=== PATIENT | male | born 1950 | race Caucasian/White ===

== ENCOUNTER 2016-09-25 16:17 | Emergency (ER) | payer MEDICAID ==
[~2016-09-25] VITALS: Ht 167.6 cm; Wt 70.0 kg
[~2016-09-25 16:17] MED LIST: DIPH50 PO; FLUP10 PO
[2016-09-25] MEDS ORDERED: HALO2 PO (16:36)
[2016-09-25] MEDS ORDERED: BENZ0.5T6 PO (16:36)
[2016-09-25] MEDS ORDERED: SODIUM CHLORIDE 0.9% 1,000 ML IV ONE (17:00)
[2016-09-25 17:14] LABS: BASOPHILS % (AUTO) 0.2 % (0.0-2.0); EOSINOPHILS % (AUTO) 4.7 % (1.0-6.0); HEMATOCRIT 39.9 % (41-53); HEMOGLOBIN 13.1 g/dL (13.5-17.5); LYMPHOCYTES # (AUTO) 0.9 K/uL (1.0-4.8); LYMPHOCYTES % (AUTO) 12.6 % (22.0-44.0); MEAN CORPUSCULAR HEMOGLOBIN 29.9 pg (26.0-34.0); MEAN CORPUSCULAR HGB CONC 32.8 G/dL (31.0-37.0); MEAN CORPUSCULAR VOLUME 91 fL (80-100); MONOCYTES # (AUTO) 0.5 K/uL (0.1-1.0); MONOCYTES % (AUTO) 7.5 % (2.0-9.0); NEUTROPHILS # (AUTO) 5.1 K/uL (1.8-7.7); RED BLOOD CELL COUNT(AUTO) 4.38 MIL/uL (4.50-5.90); RED CELL DISTRIBUTION WIDTH 13.4 % (11.5-14.5); WHITE BLOOD COUNT (AUTO) 6.8 K/uL (4.5-11.0)
[2016-09-25 17:27] LABS: ANION GAP 4 mmol/L (8-16); CALCIUM, TOTAL 8.8 mg/dL (8.8-10.5); CARBON DIOXIDE 34 mmol/L (22-29); CHLORIDE 102 mmol/L (98-107); CREATININE 1.39 mg/dL (0.60-1.30); GLOMERULAR FILTR. RATE CALC 51 mL/min (>60); POTASSIUM 3.6 mmol/L (3.5-5.1); SODIUM SERUM 140 mmol/L (136-145); UREA NITROGEN, BLOOD 26 mg/dL (7-18)
[2016-09-25 17:31] LABS: PLATELET COUNT (AUTO) 190 K/uL (150-450)
[2016-09-25 17:42] LABS: B-TYPE NATRIURETIC PEPTIDE 180 pg/mL (0-100)
[2016-09-25 17:50] LABS: ALANINE AMINOTRANSFERASE 26 U/L (12-78); ALBUMIN 3.9 g/dL (3.4-5.0); ASPARTATE AMINOTRANSFERASE 22 U/L (15-37); BILIRUBIN,TOTAL 1.2 mg/dL (0.1-1.0); CREATINE KINASE MB 1.4 ng/mL (0-5); CREATINE KINASE, TOTAL 77 U/L (39-308); TOTAL PROTEIN, SERUM 7.2 g/dL (6.4-8.2)
[2016-09-25 17:59] LABS: APPEARANCE,URINE CLEAR (CLEAR); GLUCOSE, URINE (UA) NEGATIVE (NEGATIVE); KETONES,URINE NEGATIVE (NEGATIVE); LEUKOCYTE ESTERASE ,URINE NEGATIVE (NEGATIVE); OCCULT BLOOD,URINE NEGATIVE (NEGATIVE); PROTEIN,URINE NEGATIVE (NEGATIVE)
[2016-09-25 18:01] LABS: ADD UA MICROSCOPIC NO
[2016-09-25 21:07] VITALS: BP 129/83
== END 2016-09-25 21:30 | disposition home or self-care (01) ==
LOC: EMS 16:18
DX: E86.0 Dehydration (principal); R11.2 Nausea with vomiting, unspecified; E11.9 Type 2 diabetes mellitus without complications; F17.210 Nicotine dependence, cigarettes, uncomplicated
CPT/HCPCS: 36415; 80053; 80307; 81003; 82550; 82553; 83690; 83880; 84484; 85025; 93005; 96360; 96361; 99285; G0480; J7030

== ENCOUNTER 2017-01-26 06:45 | Inpatient (IN) | payer MEDICAID ==
[~2017-01-26] VITALS: Ht 177.8 cm; Wt 62.9 kg
[~2017-01-26 06:45] MED LIST changes: +BENZ0.5T6 PO; -DIPH50 PO; -FLUP10 PO; +HALO2 PO
[2017-01-26 07:59] LABS: BASOPHILS % (AUTO) 0.6 % (0.0-2.0); EOSINOPHILS % (AUTO) 1.5 % (1.0-6.0); HEMATOCRIT 33.8 % (41-53); HEMOGLOBIN 11.4 g/dL (13.5-17.5); LYMPHOCYTES # (AUTO) 1.4 K/uL (1.0-4.8); LYMPHOCYTES % (AUTO) 18.2 % (22.0-44.0); MEAN CORPUSCULAR HEMOGLOBIN 30.5 pg (26.0-34.0); MEAN CORPUSCULAR HGB CONC 33.7 G/dL (31.0-37.0); MEAN CORPUSCULAR VOLUME 90 fL (80-100); MONOCYTES # (AUTO) 0.6 K/uL (0.1-1.0); MONOCYTES % (AUTO) 7.2 % (2.0-9.0); NEUTROPHILS # (AUTO) 5.6 K/uL (1.8-7.7); NEUTROPHILS % (AUTO) 72.5 % (40.0-70.0); PLATELET COUNT (AUTO) 216 K/uL (150-450); RED BLOOD CELL COUNT(AUTO) 3.74 MIL/uL (4.50-5.90); RED CELL DISTRIBUTION WIDTH 14.6 % (11.5-14.5); WHITE BLOOD COUNT (AUTO) 7.7 K/uL (4.5-11.0)
[2017-01-26 08:00] LABS: RBC MORPHOLOGY COMMENT NORMAL RBC MORPH
[2017-01-26 08:02] LABS: INR 1.5 (0.9-1.1); PROTHROMBIN TIME 15.7 SEC (9.4-11.6)
[2017-01-26 08:05] LABS: ANION GAP 7 mmol/L (8-16); CALCIUM, TOTAL 8.7 mg/dL (8.8-10.5); CARBON DIOXIDE 31 mmol/L (22-29); CHLORIDE 95 mmol/L (98-107); CREATININE 0.92 mg/dL (0.60-1.30); GLOMERULAR FILTR. RATE CALC > 60 mL/min (>60); POTASSIUM 3.1 mmol/L (3.5-5.1); SODIUM SERUM 133 mmol/L (136-145); UREA NITROGEN, BLOOD 17 mg/dL (7-18)
[2017-01-26 08:14] LABS: AMMONIA < 10 umol/L (11-32); TROPONIN I 0.02 ng/mL (0.00-0.05)
[2017-01-26 08:29] LABS: ALANINE AMINOTRANSFERASE 1643 U/L (12-78); ALBUMIN 3.3 g/dL (3.4-5.0); ASPARTATE AMINOTRANSFERASE 564 U/L (15-37); BILIRUBIN,TOTAL 16.8 mg/dL (0.1-1.0); CREATINE KINASE MB 3.1 ng/mL (0-5); CREATINE KINASE, TOTAL 376 U/L (39-308); TOTAL PROTEIN, SERUM 6.1 g/dL (6.4-8.2)
[2017-01-26 08:33] LABS: APPEARANCE,URINE CLOUDY (CLEAR); GLUCOSE, URINE (UA) NEGATIVE (NEGATIVE); KETONES,URINE NEGATIVE (NEGATIVE); LEUKOCYTE ESTERASE ,URINE TRACE (NEGATIVE); OCCULT BLOOD,URINE NEGATIVE (NEGATIVE); PROTEIN,URINE NEGATIVE (NEGATIVE)
[2017-01-26 08:38] LABS: ADD UA MICROSCOPIC YES
[2017-01-26 09:06] LABS: RBC,URINE None Seen /HPF (0-2); WBC,URINE 0-2 /HPF (0-5)
[2017-01-26 09:08] LABS: SQUAMOUS EPITHELIAL CELL,UR Rare /LPF (None Seen)
[2017-01-26] MEDS ORDERED: ONDANSETRON HCL 4 MG/2 ML VIAL IVP PRN (10:30)
[2017-01-26] MEDS ORDERED: SODIUM CHLORIDE 0.9% 1,000 ML IV ONE (10:30)
[2017-01-26 16:22] VITALS: BP 131/83
[2017-01-26 18:02] LABS: GLUCOSE,POINT OF CARE 58 MG/DL (70-110)
[2017-01-26] MEDS: DEXTROSE 5%-0.45% SODIUM CHL 1,000 ML IV SCH (18:51)
[2017-01-26] MEDS ORDERED: DEXTROSE 50%-WATER 25 GM/50 ML SYRINGE IVP ONE ×2 (19:27→19:45)
[2017-01-26 19:47] LABS: GLUCOSE,POINT OF CARE 27 MG/DL (70-110)
[2017-01-26 21:58] LABS: GLUCOSE,POINT OF CARE 76 MG/DL (70-110)
[2017-01-26] MEDS ORDERED: POTASSIUM CHLORIDE 10% 40 MEQ/30 ML LIQUID UDCUP PO ONE (22:15)
[2017-01-26 22:52] VITALS: BP 126/69
[2017-01-27] MEDS: DEXTROSE 5%-0.45% SODIUM CHL 1,000 ML IV SCH ×4 (04:32→21:12)
[2017-01-27 04:38] VITALS: BP 133/71
[2017-01-27 06:25] LABS: BASOPHILS % (AUTO) 0.1 % (0.0-2.0); EOSINOPHILS # (AUTO) 0.07 K/uL (0.00-0.70); EOSINOPHILS % (AUTO) 1.73 % (1.0-6.0); HEMATOCRIT 34.9 % (41-53); HEMOGLOBIN 12.2 g/dL (13.5-17.5); LYMPHOCYTES # (AUTO) 0.7 K/uL (1.0-4.8); MEAN CORPUSCULAR HEMOGLOBIN 31.7 pg (26.0-34.0); MEAN CORPUSCULAR HGB CONC 34.8 G/dL (31.0-37.0); MEAN CORPUSCULAR VOLUME 91 fL (80-100); MONOCYTES # (AUTO) 0.3 K/uL (0.1-1.0); MONOCYTES % (AUTO) 6.5 % (2.0-9.0); NEUTROPHILS % (AUTO) 73.8 % (40.0-70.0); PLATELET COUNT (AUTO) 176 K/uL (150-450); RED BLOOD CELL COUNT(AUTO) 3.83 MIL/uL (4.50-5.90); RED CELL DISTRIBUTION WIDTH 15.4 % (11.5-14.5); WHITE BLOOD COUNT (AUTO) 4.1 K/uL (4.5-11.0)
[2017-01-27 06:43] LABS: ALANINE AMINOTRANSFERASE 939 U/L (12-78); ALBUMIN 2.2 g/dL (3.4-5.0); ANION GAP 7 mmol/L (8-16); ASPARTATE AMINOTRANSFERASE 327 U/L (15-37); BILIRUBIN,TOTAL 12.6 mg/dL (0.1-1.0); CALCIUM, TOTAL 7.5 mg/dL (8.8-10.5); CARBON DIOXIDE 28 mmol/L (22-29); CHLORIDE 99 mmol/L (98-107); CREATININE 0.86 mg/dL (0.60-1.30); GLOMERULAR FILTR. RATE CALC > 60 mL/min (>60); POTASSIUM 3.7 mmol/L (3.5-5.1); SODIUM SERUM 134 mmol/L (136-145); TOTAL PROTEIN, SERUM 4.6 g/dL (6.4-8.2); UREA NITROGEN, BLOOD 13 mg/dL (7-18)
[2017-01-27 07:43] LABS: GLUCOSE,POINT OF CARE 96 MG/DL (70-110)
[2017-01-27 07:43] LABS: GLUCOSE,POINT OF CARE 73 MG/DL (70-110)
[2017-01-27 07:43] LABS: GLUCOSE,POINT OF CARE 88 MG/DL (70-110)
[2017-01-27 07:43] LABS: GLUCOSE,POINT OF CARE 86 MG/DL (70-110)
[2017-01-27 07:46] VITALS: BP 128/72
[2017-01-27 07:55] LABS: HEPATITIS Bs ANTIGEN SCREEN P Negative (Negative); HEPATITIS C AB SCREEN >11.0 s/co ratio (0.0-0.9)
[2017-01-27 11:16] VITALS: BP 117/62
[2017-01-27 14:28] LABS: GLUCOSE,POINT OF CARE 123 MG/DL (70-110)
[2017-01-27 15:36] VITALS: BP 119/66
[2017-01-27 19:28] VITALS: BP 148/76
[2017-01-27 23:48] VITALS: BP 131/73
[2017-01-28 01:02] LABS: GLUCOSE,POINT OF CARE 98 MG/DL (70-110)
[2017-01-28 01:02] LABS: GLUCOSE,POINT OF CARE 127 MG/DL (70-110)
[2017-01-28 01:07] LABS: GLUCOSE,POINT OF CARE 133 MG/DL (70-110)
[2017-01-28 03:32] LABS: GLUCOSE,POINT OF CARE 123 MG/DL (70-110)
[2017-01-28 04:27] VITALS: BP 146/79
[2017-01-28] MEDS: DEXTROSE 5%-0.45% SODIUM CHL 1,000 ML IV SCH ×3 (05:35→21:50)
[2017-01-28 05:38] LABS: GLUCOSE,POINT OF CARE 98 MG/DL (70-110)
[2017-01-28 07:30] VITALS: BP 150/74
[2017-01-28 07:33] LABS: GLUCOSE,POINT OF CARE 90 MG/DL (70-110)
[2017-01-28 07:33] LABS: GLUCOSE,POINT OF CARE 118 MG/DL (70-110)
[2017-01-28 07:33] LABS: GLUCOSE,POINT OF CARE 127 MG/DL (70-110)
[2017-01-28 09:07] LABS: ALANINE AMINOTRANSFERASE 755 U/L (12-78); ALBUMIN 2.1 g/dL (3.4-5.0); ANION GAP 7 mmol/L (8-16); ASPARTATE AMINOTRANSFERASE 240 U/L (15-37); BILIRUBIN,TOTAL 12.9 mg/dL (0.1-1.0); CALCIUM, TOTAL 7.4 mg/dL (8.8-10.5); CARBON DIOXIDE 28 mmol/L (22-29); CHLORIDE 97 mmol/L (98-107); CREATININE 0.96 mg/dL (0.60-1.30); GLOMERULAR FILTR. RATE CALC > 60 mL/min (>60); POTASSIUM 3.6 mmol/L (3.5-5.1); SODIUM SERUM 132 mmol/L (136-145); TOTAL PROTEIN, SERUM 4.7 g/dL (6.4-8.2); UREA NITROGEN, BLOOD 13 mg/dL (7-18)
[2017-01-28 09:24] LABS: BASOPHILS % (AUTO) 0.8 % (0.0-2.0); EOSINOPHILS % (AUTO) 1.1 % (1.0-6.0); HEMATOCRIT 36.1 % (41-53); HEMOGLOBIN 11.7 g/dL (13.5-17.5); LYMPHOCYTES # (AUTO) 0.7 K/uL (1.0-4.8); LYMPHOCYTES % (AUTO) 17.6 % (22.0-44.0); MEAN CORPUSCULAR HEMOGLOBIN 29.9 pg (26.0-34.0); MEAN CORPUSCULAR HGB CONC 32.5 G/dL (31.0-37.0); MEAN CORPUSCULAR VOLUME 92 fL (80-100); MONOCYTES # (AUTO) 0.3 K/uL (0.1-1.0); MONOCYTES % (AUTO) 6.1 % (2.0-9.0); NEUTROPHILS # (AUTO) 3.2 K/uL (1.8-7.7); NEUTROPHILS % (AUTO) 74.4 % (40.0-70.0); RED BLOOD CELL COUNT(AUTO) 3.92 MIL/uL (4.50-5.90); RED CELL DISTRIBUTION WIDTH 16.1 % (11.5-14.5)
[2017-01-28 09:29] LABS: WHITE BLOOD COUNT (AUTO) 5.5 K/uL (4.5-11.0)
[2017-01-28 09:50] LABS: PARTIAL THROMBOPLASTIN TIME 32 SEC (25-35)
[2017-01-28] MEDS: PANTOPRAZOLE SODIUM 40 MG/VIAL IVP SCH (09:59)
[2017-01-28 10:31] LABS: PLATELET COUNT (AUTO) 153 K/uL (150-450)
[2017-01-28 11:16] VITALS: BP 135/83
[2017-01-28 14:53] VITALS: BP 118/59
[2017-01-28] MEDS ORDERED: INSULIN ASPART 100 UNITS/ML SQ PRN (15:30)
[2017-01-28 20:02] VITALS: BP 139/94
[2017-01-28 23:41] VITALS: BP 146/93
[2017-01-29 04:16] VITALS: BP 125/66
[2017-01-29 05:08] LABS: GLUCOSE,POINT OF CARE 116 MG/DL (70-110)
[2017-01-29 05:08] LABS: GLUCOSE COMMENT 1 Received Meds; GLUCOSE,POINT OF CARE 144 MG/DL (70-110)
[2017-01-29 05:13] LABS: GLUCOSE,POINT OF CARE 126 MG/DL (70-110)
[2017-01-29 05:18] LABS: GLUCOSE,POINT OF CARE 101 MG/DL (70-110)
[2017-01-29 05:18] LABS: GLUCOSE,POINT OF CARE 115 MG/DL (70-110)
[2017-01-29 05:18] LABS: GLUCOSE COMMENT 1 Received Meds; GLUCOSE,POINT OF CARE 160 MG/DL (70-110)
[2017-01-29 05:19] LABS: GLUCOSE,POINT OF CARE 136 MG/DL (70-110)
[2017-01-29 06:56] LABS: PARTIAL THROMBOPLASTIN TIME 33 SEC (25-35)
[2017-01-29 07:25] LABS: ALANINE AMINOTRANSFERASE 540 U/L (12-78); ALBUMIN 1.8 g/dL (3.4-5.0); ANION GAP 7 mmol/L (8-16); ASPARTATE AMINOTRANSFERASE 161 U/L (15-37); BILIRUBIN,TOTAL 11.1 mg/dL (0.1-1.0); CALCIUM, TOTAL 7.2 mg/dL (8.8-10.5); CARBON DIOXIDE 24 mmol/L (22-29); CHLORIDE 98 mmol/L (98-107); CREATININE 0.85 mg/dL (0.60-1.30); GLOMERULAR FILTR. RATE CALC > 60 mL/min (>60); POTASSIUM 3.9 mmol/L (3.5-5.1); SODIUM SERUM 129 mmol/L (136-145); TOTAL PROTEIN, SERUM 4.3 g/dL (6.4-8.2); UREA NITROGEN, BLOOD 19 mg/dL (7-18)
[2017-01-29] MEDS: PANTOPRAZOLE SODIUM 40 MG/VIAL IVP SCH (08:10)
[2017-01-29 08:24] VITALS: BP 136/77
[2017-01-29 08:39] LABS: BASOPHILS % (AUTO) 0.2 % (0.0-2.0); EOSINOPHILS % (AUTO) 0.7 % (1.0-6.0); HEMATOCRIT 36.5 % (41-53); HEMOGLOBIN 12.2 g/dL (13.5-17.5); LYMPHOCYTES # (AUTO) 0.7 K/uL (1.0-4.8); LYMPHOCYTES % (AUTO) 12.3 % (22.0-44.0); MEAN CORPUSCULAR HEMOGLOBIN 31.3 pg (26.0-34.0); MEAN CORPUSCULAR HGB CONC 33.6 G/dL (31.0-37.0); MEAN CORPUSCULAR VOLUME 93 fL (80-100); MONOCYTES # (AUTO) 0.3 K/uL (0.1-1.0); MONOCYTES % (AUTO) 5.3 % (2.0-9.0); NEUTROPHILS # (AUTO) 4.4 K/uL (1.8-7.7); NEUTROPHILS % (AUTO) 81.5 % (40.0-70.0); PLATELET COUNT (AUTO) 169 K/uL (150-450); RED BLOOD CELL COUNT(AUTO) 3.91 MIL/uL (4.50-5.90); RED CELL DISTRIBUTION WIDTH 16.6 % (11.5-14.5); WHITE BLOOD COUNT (AUTO) 5.5 K/uL (4.5-11.0)
[2017-01-29] MEDS: DEXTROSE 5%-0.45% SODIUM CHL 1,000 ML IV SCH ×2 (10:15→18:56)
[2017-01-29 11:32] VITALS: BP 120/71
[2017-01-29 16:14] VITALS: BP 144/76
[2017-01-29 20:00] VITALS: BP 139/81
[2017-01-29 23:06] VITALS: BP 128/77
[2017-01-30] MEDS: DEXTROSE 5%-0.45% SODIUM CHL 1,000 ML IV SCH ×2 (00:25→08:21)
[2017-01-30 03:52] LABS: GLUCOSE,POINT OF CARE 126 MG/DL (70-110)
[2017-01-30 03:53] LABS: GLUCOSE,POINT OF CARE 106 MG/DL (70-110)
[2017-01-30 03:53] LABS: GLUCOSE,POINT OF CARE 108 MG/DL (70-110)
[2017-01-30 03:53] LABS: GLUCOSE,POINT OF CARE 104 MG/DL (70-110)
[2017-01-30 04:20] VITALS: BP 141/68
[2017-01-30 06:38] LABS: GLUCOSE,POINT OF CARE 98 MG/DL (70-110)
[2017-01-30 06:50] LABS: PARTIAL THROMBOPLASTIN TIME 30 SEC (25-35)
[2017-01-30 07:11] LABS: ALANINE AMINOTRANSFERASE 448 U/L (12-78); ALBUMIN 1.9 g/dL (3.4-5.0); ANION GAP 6 mmol/L (8-16); ASPARTATE AMINOTRANSFERASE 150 U/L (15-37); BILIRUBIN,TOTAL 12.2 mg/dL (0.1-1.0); CALCIUM, TOTAL 7.3 mg/dL (8.8-10.5); CARBON DIOXIDE 24 mmol/L (22-29); CHLORIDE 99 mmol/L (98-107); CREATININE 0.84 mg/dL (0.60-1.30); GLOMERULAR FILTR. RATE CALC > 60 mL/min (>60); POTASSIUM 4.2 mmol/L (3.5-5.1); SODIUM SERUM 129 mmol/L (136-145); TOTAL PROTEIN, SERUM 4.4 g/dL (6.4-8.2); UREA NITROGEN, BLOOD 16 mg/dL (7-18)
[2017-01-30 08:15] VITALS: BP 125/70
[2017-01-30] MEDS: PANTOPRAZOLE SODIUM 40 MG/VIAL IVP SCH (08:21)
[2017-01-30 11:16] VITALS: BP 142/76
[2017-01-30 15:08] VITALS: BP 135/67
[2017-01-31 04:42] LABS: GLUCOSE,POINT OF CARE 105 MG/DL (70-110)
[2017-01-31 04:42] LABS: GLUCOSE,POINT OF CARE 125 MG/DL (70-110)
== END 2017-01-30 18:10 ==
LOC: EMS 06:45 → AHU 15:37 → 5S 20:20
PROVIDERS: ADMIT Family Medicine; ATTEND Family Medicine
DX: B15.9 Hepatitis A without hepatic coma (principal); G93.40 Encephalopathy, unspecified; D68.9 Coagulation defect, unspecified; F20.9 Schizophrenia, unspecified; D64.9 Anemia, unspecified; E11.9 Type 2 diabetes mellitus without complications; F32.9 Major depressive disorder, single episode, unspecified; F17.210 Nicotine dependence, cigarettes, uncomplicated; B18.2 Chronic viral hepatitis C; Z86.73 Personal history of transient ischemic attack (TIA), and cerebral infarction without residual deficits; Z91.048 Other nonmedicinal substance allergy status; Z90.49 Acquired absence of other specified parts of digestive tract
CPT/HCPCS: 51702; 70450; 76705; 80074; 82962; 83735; 85732; 93005; 96360; 96361; 97162; 97166; 97530; 97535; 99285; C9113; J7030